=== PATIENT | female | born 1980 | race Hispanic/Latino ===

== ENCOUNTER 2022-12-07 23:51 | Emergency (ER) | payer MEDICAID ==
[~2022-12-07] VITALS: Ht 162.6 cm; Wt 81.6 kg
[2022-12-07 23:55] VITALS: BP 140/104; PULSE 77; RESP 20
[2022-12-08] MEDS ORDERED: IBUP-1493 PO (01:17)
[2022-12-08] MEDS ORDERED: ACET-66 PO (01:17)
[2022-12-08] MEDS ORDERED: IBUPROFEN 800 MG TAB PO ONE (01:30)
[2022-12-08] MEDS ORDERED: AMOXICILLIN 500 MG CAPSULE PO ONE (01:30)
[2022-12-08] MEDS ORDERED: AMOX500C2 PO (02:27)
== END 2022-12-08 02:37 | disposition home or self-care (01) ==
LOC: EDH 23:51
DX: S60.211A Contusion of right wrist, initial encounter (principal); I10 Essential (primary) hypertension; Z79.1 Long term (current) use of non-steroidal anti-inflammatories (NSAID); Z90.710 Acquired absence of both cervix and uterus; X58.XXXA Exposure to other specified factors, initial encounter; Y93.89 Activity, other specified; Y92.89 Other specified places as the place of occurrence of the external cause; Y99.8 Other external cause status
CPT/HCPCS: 29125; 73110; 73130